=== PATIENT | male | born 1950 | race Caucasian/White ===

== ENCOUNTER 2019-02-18 07:21 | Observation (INO) ==
--- NOTE | 2019-02-12 14:08 | Anesthesiology Consultation ---
Date of Service February 12, 2019 Assessment & Plan (1) Encounter for pre-operative examination: Chart Review Chart Review: Acceptable Risk for Surgery and Patient seen in Pre Admission Testing Teaching & Discussion Pre-Anesthesia Teaching/Discussion Notes: Instructed NPO after midnight before surgery,except medications with 15 cc of water. Medication instructions provided according to the PAT guidelines. History Surgery Operation Date: 02/18/19 08:20 Proposed Procedures p Open Bilateral Inguinal Hernia Repair - Nael Gr MD, FACS Height/Weight Height: 5 ft 8 in Weight: 73.936 kg Allergies Allergy/AdvReac Type Severity Reaction Status Date / Time No Known Allergies Allergy Unverified 02/12/19 14:03 Medications Home Medications Medication Instructions Recorded Confirmed Last Taken No Known Home Medications 02/12/19 02/12/19 Unknown Past Medical History Medical History Elevated blood pressure reading PCP RECOMMENDED LOW SODIUM DIET/MONITORING OF 12/2018 OFFICE VISIT Inguinal hernia PAC (premature atrial contraction) "ASYMPTOMATIC" Urinary frequency Past Surgical History Surgical History History of tonsillectomy Testing Electrocardiogram Date: 01/08/19 SR with PAC's at 63bpm. Other Testing 48 hour holter report: 01/30/19: predominant rhythm sinus. Heart rate variability acceptable. Frequent APC's. No sustained arrhythmias. No pauses. No heart block. T/C beta-tiana is symptomatic given frequent APC's (patient asymptomatic per 12/2018 PCP office visit note). Laboratory Results 01/09/19 WBC 4.7 H/H 14.8/42.6 PLATELETS 223 SODIUM 139 POTASSIUM 3.8 CHLORIDE 104 CO2 27 BUN 11 CREATININE 0.92 GLUCOSE 116
[~2019-02-18 07:21] MED LIST: CEFAZOLIN 2000MG 2,000 MG/15 ML SYR IV SCH; LR 15ML/HR IV SCH
[2019-02-18] MEDS ORDERED: ATROPINE SULFATE 0.1 MG/ML 10ML SYR IV PRN (09:00)
[2019-02-18] MEDS ORDERED: ePHEDrine sulfate 50 MG/ML AMP IV PRN (09:00)
[2019-02-18] MEDS ORDERED: LIDOCAINE HCL 2% 2 ML VIAL/AMP(20MG/ML) INFIL ONE (09:06)
[2019-02-18] MEDS ORDERED: DEXAMETHASONE SOD INJ 4 MG/ML VIAL ONE (09:06)
[2019-02-18] MEDS ORDERED: fentaNYL citrate 100 MCG/2 ML VIAL ONE ×2 (09:06→10:12)
[2019-02-18] MEDS ORDERED: MIDAZOLAM HCL 1 MG/ML 2ML VIAL ONE (09:06)
[2019-02-18] MEDS ORDERED: PROPOFOL IV EMULSION 10 MG/ML 20 ML VIAL IV ONE (09:06)
[2019-02-18] MEDS ORDERED: ONDANSETRON INJ 2 MG/ML 2 ML VIAL ONE (09:06)
--- NOTE | 2019-02-18 09:13 | History & Physical Bridge Note ---
Date of Service February 18, 2019 History & Physical Bridge Note I have examined the patient, reviewed the History & Physical and in the interval since the performance of the History & Physical I have noted the following changes of clinical significance: no changes noted
[2019-02-18] MEDS ORDERED: BUPIVACAINE 0.5 % 5 MG/1 ML MPF 30ML VIAL ONE (09:14)
[2019-02-18] MEDS ORDERED: CEFAZOLIN 250 MG/ML 1 GM VIAL ONE (09:14)
[2019-02-18] MEDS ORDERED: LIDOCAINE HCL 1% 20 ML VIAL ONE (09:14)
[2019-02-18] MEDS ORDERED: ROCURONIUM BROMIDE 10 MG/ML 5 ML VIAL ONE (09:57)
[2019-02-18] MEDS ORDERED: ACETAMINOPHEN 1,000 MG/100 ML VIAL IV ONE (10:40)
--- NOTE | 2019-02-18 10:40 | Operative Report ---
Post Operative Report Pre & Post Diagnosis Operation Date: 02/18/19 09:25 Pre-Op Diagnosis: Bilateral Inguinal Hernias Post-Op Diagnosis: Bilateral Inguinal Hernias Procedure Operation Date: 02/18/19 09:25 Actual Procedures p Open Bilateral Inguinal Hernia Repairs with Mesh(Bilateral) - Nael Gr MD, FACS Surgeon Nael Gr MD, FACS Floor Covering Installer Jordy Mora Estimated Blood Loss 10 Findings Consistent with Post-Op Diagnosis Specimens Rt lipoma Description of Procedure see dictation I attest to the content of the Intraoperative Record and any orders documented therein. Any exceptions are noted below.
--- NOTE | 2019-02-18 11:33 | Anesthesiology Progress Note ---
Date of Service February 18, 2019 Anesthesia Post Procedure Vital Signs Vital Signs: Temp Pulse Pulse Resp BP BP Pulse Ox 02/18/19 11:30 36.8 C 02/18/19 11:20 74 16 146/89 H 99 02/18/19 11:10 69 16 150/84 H 99 02/18/19 11:00 72 16 146/79 H 100 02/18/19 10:50 37.2 C 77 16 163/89 H 100 02/18/19 08:21 36.7 C 82 20 173/90 H 181/106 H 99 Pain Intensity Bilateral Lower Abdomen: Pain Intensity: 0 Notes Mental Status: alert / awake / arousable and participated in evaluation Nausea / Vomiting: adequately controlled Pain: adequately controlled Airway Patency, RR, SpO2: stable & adequate BP & HR: stable & adequate Hydration State: stable & adequate
[2019-02-18] MEDS ORDERED: SODIUM CHLORIDE 0.9% 1000ML 1,000 ML IV SCH (11:55)
[2019-02-18] MEDS ORDERED: ACETAMINOPHEN 325 MG TAB PO PRN (11:55)
[2019-02-18] MEDS ORDERED: PROMETHAZINE HCL 25 MG in SODIUM CHLORIDE 0.9% 50 ML IV PRN (11:55)
[2019-02-18] MEDS ORDERED: PROMETHAZINE HCL 12.5 MG in SODIUM CHLORIDE 0.9% 50 ML IV PRN (11:55)
[2019-02-18] MEDS ORDERED: MoRPHine SULFATE 4 MG/ML 1 ML CARP\\VIAL IV PRN (11:55)
[2019-02-18] MEDS ORDERED: MoRPHine SULFATE 2 MG/ML CARP IV PRN (11:55)
[2019-02-18] MEDS ORDERED: IBUPROFEN 600 MG TAB PO PRN (11:55)
[2019-02-18] MEDS ORDERED: HYDROCODONE/ACETAMOPHEN 5/325MG TAB PO PRN ×2 (11:55)
[2019-02-18] MEDS ORDERED: ONDANSETRON INJ 2 MG/ML 2 ML VIAL IV PRN (11:55)
--- NOTE | 2019-02-18 13:41 | Operative Report ---
DATE OF OPERATION: 02/18/2019 NAME OF OPERATION: Bilateral inguinal hernia repair. PREOPERATIVE DIAGNOSIS: Bilateral inguinal hernias. POSTOPERATIVE DIAGNOSIS: Bilateral inguinal hernias. STAFF SURGEON: Nael Gr MD AREA MECHANIC: Xander Mora PA-C ANESTHESIA: General. DESCRIPTION OF PROCEDURE: The patient was brought in the operating room and placed on the operating table in supine position. Garcia catheter was placed. Pneumatic stockings placed. Orogastric tube was placed. His lower abdomen was prepped and draped in usual fashion bilaterally. Incision was initially made in the right lower quadrant parallel to the inguinal ligament, carrying dissection down using 0.5% plain Marcaine to anesthetize the tissue. The external oblique fibers incised along their length to the external ring. Cord structures were mobilized. The patient had a large lipoma, which was transected and ligated using 2-0 silk suture. There may have an indirect sac associated with this. I did not see any other direct or indirect sac. The internal ring was reinforced using a mesh plug, secured to surrounding tissue using 2-0 Ethibond suture. A large mesh patch was placed into the floor of the canal around the cord structures, secured using 2-0 Ethibond suture. External oblique fibers then closed over the mesh around the cord structures using 2-0 Ethibond suture. The tissue was irrigated and then anesthetized using 0.5% plain Marcaine. Subcutaneous tissue reapproximated using 2-0 plain suture and then the skin reapproximated using 4-0 nylon suture and Steri-Strips. The left side was approached. Same incision, carrying dissection down to the external oblique fibers incising along their length and the cord structures were mobilized. The patient had a relatively large indirect hernia sac which was dissected away from the cord structures and reduced. He had a very small lipoma which was excised. The internal ring reinforced using a mesh plug, secured to surrounding tissue using 2-0 Ethibond suture, then a mesh patch placed and secured as it was in the right side. External oblique fibers closed over the mesh around the cord using 2-0 Ethibond suture. The site again anesthetized and subcutaneous tissue reapproximated using 2-0 plain suture and then the skin reapproximated using 4-0 nylon suture and Steri-Strips. The patient was transferred to the recovery room in stable condition. I attest to the content of the Intraoperative Record and any orders documented therein. Any exception s are noted below.
[2019-02-18] MEDS: CEFAZOLIN 1000MG 1,000 MG/7.5 ML SYR IV SCH ×2 (15:47→23:08)
[2019-02-18] MEDS ORDERED: DOCUSATE SODIUM/SENNA 50/8.6MG TAB PO SCH (21:00)
[2019-02-18] MEDS ORDERED: MAGNESIUM HYDROXIDE SUSP 30 ML UDC PO SCH (21:00)
--- NOTE | 2019-02-19 07:50 | Anesthesiology Progress Note ---
Date of Service February 19, 2019 Anesthesia Post Procedure Vital Signs Vital Signs: Temp Pulse Pulse Resp BP BP Pulse Ox 02/19/19 07:17 36.5 C 73 16 158/78 H 98 02/19/19 07:04 36.5 C 73 16 158/78 H 98 02/19/19 03:55 36.6 C 68 18 163/85 H 96 02/18/19 23:35 36.5 C 78 18 161/84 H 94 02/18/19 19:56 36.5 C 76 16 159/90 H 94 02/18/19 15:12 36.3 C L 68 17 157/89 H 95 02/18/19 14:41 77 16 164/93 H 96 02/18/19 13:43 71 16 158/76 H 96 02/18/19 12:44 76 16 163/86 H 99 02/18/19 12:15 36.6 C 70 16 159/84 H 99 02/18/19 11:45 36.6 C 76 16 149/84 H 95 02/18/19 11:30 36.8 C 02/18/19 11:20 74 16 146/89 H 99 02/18/19 11:10 69 16 150/84 H 99 02/18/19 11:00 72 16 146/79 H 100 02/18/19 10:50 37.2 C 77 16 163/89 H 100 02/18/19 08:21 36.7 C 82 20 173/90 H 181/106 H 99 Pain Intensity Bilateral Lower Abdomen: Pain Intensity: 5 Notes Mental Status: alert / awake / arousable Patient Amnestic to Procedure: Yes Nausea / Vomiting: adequately controlled Pain: adequately controlled Airway Patency, RR, SpO2: stable & adequate BP & HR: stable & adequate Hydration State: stable & adequate Anesthetic Complications: no major complications apparent
--- NOTE | 2019-02-19 07:53 | Discharge Summary ---
PRINCIPAL DIAGNOSIS: Bilateral inguinal hernias. PROCEDURES: The patient underwent open bilateral inguinal hernia repair. HISTORY OF PRESENT ILLNESS: The patient is a 68-year-old male presenting for elective repair of bilateral inguinal hernias. HOSPITAL COURSE: He was taken to the operating room on 02/18/2019 where he underwent open bilateral inguinal hernia repair. He has done quite well overnight and is felt stable for discharge home today to be followed in the surgical clinic next week.
[2019-02-19] MEDS: CEFAZOLIN 1000MG 1,000 MG/7.5 ML SYR IV SCH (08:13)
== END 2019-02-19 08:43 | disposition home or self-care (01) ==
LOC: 3N 07:21 → ASU 07:21